=== PATIENT | male | born 1960 | race Caucasian/White ===

== ENCOUNTER → 2020-07-27 13:20 | Outpatient (BNVA) | payer OTHER, SELFPAY | PROVIDERS: Visit Provider Internal Medicine | DX: E78.5 Hyperlipidemia, unspecified (principal); R01.1 Cardiac murmur, unspecified | CPT/HCPCS: 80061 ==

== ENCOUNTER 2020-09-09 14:52 | Outpatient (CLI) | payer OTHER, SELFPAY ==
--- NOTE | 2020-09-09 15:00 | USCV_ITS ---
Aracely Yony Age: 60 Gender: M : 1960 Exam Date: 09/09/2020 15:11 Ordering Phys: Ezekiel Luz M.D ([email or web address]) Technologist: Carley Peña Exam Location: [facility] [place] Indication: Cardiac murmur BP: 130 / 82 HR: 69 Rhythm: Sinus Technical Quality: Fair MEASUREMENTS (Male / Female) Normal Values 2D ECHO LV Diastolic Diameter PLAX 3.8 cm 4.2 - 5.9 / 3.9 - 5.3 cm LV Systolic Diameter PLAX 2.2 cm LV Chamber Size 3.9 cm IVS Diastolic Thickness 1.7 cm 0.6 - 1.0 / 0.6 - 0.9 cm IVS Systolic Thickness 2.0 cm LVPW Diastolic Thickness 0.7 cm 0.6 - 1.0 / 0.6 - 0.9 cm LVPW Systolic Thickness 1.4 cm RV Chamber Size 2.5 cm LVOT Diameter 1.9 cm LV Ejection Fraction 2D Teich 73.1 % LV Ejection Fraction MOD 2C 68.0 % LV Ejection Fraction 2C AL 68.7 % LA Diameter 2.2 cm LA Width 2.9 cm LA Height 4.5 cm RA Width 2.1 cm RA Height 4.0 cm Aorta at Sinotubular Diameter 2.5 cm M-MODE LV Diastolic Diameter MM 4.7 cm 4.2 - 5.9 / 3.9 - 5.3 cm LV Systolic Diameter MM 2.7 cm LV Ejection Fraction MM Teich 74.1 % IVS Diastolic Thickness MM 1.4 cm 0.6 - 1.0 / 0.6 - 0.9 cm IVS Systolic Thickness MM 1.9 cm LVPW Diastolic Thickness MM 1.3 cm 0.6 - 1.0 / 0.6 - 0.9 cm LVPW Systolic Thickness MM 1.4 cm RV Diastolic Diameter MM 1.6 cm Aortic Annulus Diameter 3.4 cm LA Ao Ratio MM 0.8 DOPPLER AV Peak Velocity 201.3 cm/s LVOT Peak Velocity 135.0 cm/s AV Area Cont Eq vti 1.9 cm squared AV Area Cont Eq pk 1.9 cm squared MV Area PHT 3.1 cm squared Mitral E to A Ratio 1.1 MV E' Velocity 51.0 cm/s Mitral E to MV E' Ratio 7.2 Mitral E to LV E' Lateral Ratio 5.8 Mitral E to LV E' Septal Ratio 9.7 TV Peak E Velocity 68.0 cm/s Right Atrial Pressure 3.0 mmHg PV Peak Velocity 105.0 cm/s RV Acceleration Time 0.1 s RV Ejection Time 0.3 s RV AcT/ET 0.4 FINDINGS Left Ventricle Normal left ventricular size. LV systolic function is normal with EF of 55-60%. No regional wall motion abnormalities. Normal diastolic filling pattern. Right Ventricle The right ventricle is normal in size and function. Right Atrium The right atrium is normal in size. Left Atrium The left atrium is normal in size. Mitral Valve Structurally normal mitral valve without significant stenosis or prolapse. There is trace mitral regurgitation. Aortic Valve Calcified aortic valve. Mild aortic regurgitation is seen with mean gradient across the aortic valve of 10mmHg . There is no aortic regurgitation. Tricuspid Valve Structurally normal tricuspid valve without significant stenosis or regurgitation. Insufficient TR jet to calculate RVSP Pulmonic Valve Structurally normal pulmonic valve without significant stenosis. There is no pulmonic regurgitation. Pericardium Normal pericardium without effusion. Aorta Normal ascending aorta dimension. CONCLUSIONS LV systolic function is normal with EF of 55-60% Diastolic function is normal Trace mitral regurgitation is noted Mild aortic stenosis No comparison studies are available Ezekiel Luz MD (Electronically Signed) Final Date: 13 September 2020 18:47 S
== END 2020-09-09 14:53 | disposition home or self-care (01) ==
LOC: RAD 14:54
PROVIDERS: Visit Provider Internal Medicine
DX: R01.1 Cardiac murmur, unspecified (principal); I35.0 Nonrheumatic aortic (valve) stenosis; I34.0 Nonrheumatic mitral (valve) insufficiency
CPT/HCPCS: 93306

== ENCOUNTER 2021-09-29 06:20 | Outpatient (CLI) | payer OTHER, SELFPAY ==
--- NOTE | 2021-09-29 06:30 | USCV_ITS ---
Yony Jessica Age: 61 Gender: M : 1960 Exam Date: 09/29/2021 06:32 Ordering Phys: Ezekiel Luz M.D ([email or web address]) Technologist: Lenin Aranda Exam Location: [facility] [place] Indication: aortic stenosis BP: 125 / 81 HR: 69 Rhythm: Sinus Technical Quality: Good MEASUREMENTS (Male / Female) Normal Values 2D ECHO LV Diastolic Diameter PLAX 3.9 cm 4.2 - 5.9 / 3.9 - 5.3 cm LV Systolic Diameter PLAX 1.6 cm IVS Diastolic Thickness 1.3 cm 0.6 - 1.0 / 0.6 - 0.9 cm IVS Systolic Thickness 1.3 cm LVPW Diastolic Thickness 1.1 cm 0.6 - 1.0 / 0.6 - 0.9 cm LVPW Systolic Thickness 1.5 cm LVOT Diameter 2.1 cm LV Ejection Fraction 2D Teich 88.5 % LV Ejection Fraction MOD 2C 81.7 % LV Ejection Fraction 2C AL 81.5 % LA Diameter 3.8 cm Aorta at Sinotubular Diameter 2.9 cm IVC Diameter 1.2 cm M-MODE Aortic Annulus Diameter 3.8 cm LA Ao Ratio MM 1.1 MV E Point Septal Separation 0.8 cm DOPPLER AV Peak Velocity 313.0 cm/s LVOT Peak Velocity 118.0 cm/s AV Area Cont Eq vti 1.1 cm squared AV Area Cont Eq pk 1.3 cm squared MV Area PHT 5.0 cm squared Mitral E to A Ratio 1.0 MV E' Velocity 50.0 cm/s Mitral E to MV E' Ratio 8.7 Mitral E to LV E' Lateral Ratio 9.0 Mitral E to LV E' Septal Ratio 8.5 TR Peak Velocity 223.3 cm/s TR Peak Gradient 20.0 mmHg TV Peak E Velocity 128.0 cm/s Right Atrial Pressure 5.0 mmHg Pulmonary Artery Systolic Pressu 25.0 mmHg PV Peak Velocity 126.0 cm/s FINDINGS Left Ventricle Normal left ventricular size. LV systolic function is normal with EF of 60-65%. No regional wall motion abnormalities. Normal diastolic filling pattern. Right Ventricle The right ventricle is normal in size and function. Right Atrium The right atrium is normal in size. Left Atrium The left atrium is normal in size. Mitral Valve Structurally normal mitral valve without significant stenosis or prolapse. There is trace mitral regurgitation. Aortic Valve Aortic valve is significantly thickened and calcified. By continuity equation, aortic valve area is 1.1 cm squared and mean gradient across aortic valve is 19 mmHg. This is consistent with moderate aortic stenosis. Tricuspid Valve Trace tricuspid regurgitation. Pulmonary artery systolic pressure is normal Pulmonic Valve Not well-visualized Pericardium Normal pericardium without effusion. Aorta Normal ascending aorta dimension. IVC CONCLUSIONS LV systolic function is normal with EF of 60 to 65%. Normal diastolic function. Trace mitral regurgitation. Aortic valve is significantly thickened and calcified. Moderate aortic stenosis. Aortic valve area is 1.1 cm. Mean gradient across aortic valve is 19 mmHg. Trace tricuspid regurgitation. Compared to prior echocardiogram from 2020, aortic stenosis has progressed and patient now has moderate aortic stenosis Ezekiel Luz MD (Electronically Signed) Final Date: 05 October 2021 14:10 S
== END 2021-09-29 06:21 | disposition home or self-care (01) ==
PROVIDERS: PCP Family Medicine; Visit Provider Internal Medicine
DX: I08.3 Combined rheumatic disorders of mitral, aortic and tricuspid valves (principal)
CPT/HCPCS: 93306

== ENCOUNTER 2021-10-24 13:17 | Emergency (ER) | payer OTHER, SELFPAY ==
[2021-10-24 13:22] VITALS: BP 154/83; PULSE 76; RESP 18; TEMP 36.9; O2SAT 98; BMI 25.7
--- NOTE | 2021-10-24 13:23 | ECG_ITS ---
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 Measurements Intervals [place] Rate: 73 P: 58 HI: 176 QRS: 11 QRSD: 91 T: 80 QT: 357 QTc: 395 Interpretive Statements SINUS RHYTHM NONSPECIFIC T-WAVE ABNORMALITY Compared to ECG 10/27/2014 16:12:47 No significant changes Electronically Signed On 10-24-2021 17:36:24 CDT by Ezekiel Luz M.D. [id number]
--- NOTE | 2021-10-24 13:29 | XRR_ITS ---
PROCEDURE INFORMATION: Exam: XR Chest Exam date and time: 10/24/2021 2:00 PM Age: 61 years old Clinical indication: Pain; Angina pectoris; Additional info: Chest pain TECHNIQUE: Imaging protocol: Radiologic exam of the chest. Views: 1 view. COMPARISON: CR Chest 1 [place] [id number] 10/27/2014 5:04 PM FINDINGS: Lungs: Unremarkable. No consolidation. Pleural spaces: Unremarkable. No pleural effusion. No pneumothorax. Heart/Mediastinum: Unremarkable. No cardiomegaly. Bones/joints: Unremarkable. XR/XR chest 1V portable [id number] IMPRESSION: No acute findings.
[2021-10-24 13:54] LABS: Basophils % 0.7 %; Eosinophils % 0.6 %; Hematocrit 49.8 % (42.0-52.0); Hemoglobin 16.8 g/dL (11.7-16.6); Lymphocytes # 1.4 10^3/uL (0.8-4.8); Mean Corpuscular HGB Conc 33.7 g/dL (30.0-36.0); Mean Corpuscular Hemoglobin 30.9 pg (28.0-34.0); Mean Corpuscular Volume 91.5 fl (80-94); Mean Platelet Volume 9.1 fL (7.4-10.4); Monocytes # 0.4 10^3/uL (0.2-0.9); Monocytes % 7.1 %; Neutrophils # 3.53 10^3/uL (1.8-7.7); Neutrophils % 65.4 %; Nucleated Red Blood Cells % 0 %; Platelet Count 211 10^3/cmm (130-400); Red Blood Count 5.44 10^6/uL (4.1-5.3); Red Cell Distribution Width 12.3 % (12.1-15.1); White Blood Count 5.4 10^3/uL (4.0-10.0)
[2021-10-24 14:37] LABS: Alanine Aminotransferase 73 U/L (0-41); Albumin Level 4.6 g/dL (3.5-5.2); Alkaline Phosphatase 58 U/L (40-130); Aspartate Amino Transferase 47 U/L (0-40); Blood Urea Nitrogen 13 mg/dL (6-20); Calcium 9.5 mg/dL (8.5-10.5); Carbon Dioxide 26 mmol/L (22-29); Chloride 101 mmol/L (98-107); Globulin 2.5 g/dL (1.3-4.6); Glomerular Filtration Rate 98.9 mL/min (90-130); Glucose 106 mg/dL (65-115); Osmolality Calculated 291 mOsm/kg (285-295); Sodium 140 mmol/L (136-145); Total Bilirubin 0.5 mg/dL (0.15-1.2); Total Protein 7.1 g/dL (6.6-8.7)
[2021-10-24 14:38] LABS: Anion Gap 16.9 (5-19); Potassium 3.9 mmol/L (3.5-5.1)
[2021-10-24 14:39] LABS: Troponin T (5th) Once 9 ng/L (0-15)
[2021-10-24 16:39] VITALS: BP 151/95; PULSE 65; RESP 16; O2SAT 99
--- NOTE | 2021-10-24 16:44 | ED_ITS ---
HPI - Chest Pain General: Chief Complaint: Chest Pain Stated Complaint: chest pain Time Seen by Provider: 10/24/21 16:32 Source: patient Mode of arrival: ambulatory Limitations: no limitations History of Present Illness: 61-year-old male presents emergency room with complaints of just generally not feeling well weak some mild chest pain intermittently but describes it just a generalized ache. He has a known aortic stenosis which has been being monitored. Its not cause a significant problem this point he became concerned that it may be COVID causing him to be fatigued. He last had it checked a couple months ago he does have a history hypertension and is on several antihypertensives. He has not had any vomiting or diarrhea he has not had any fever sweats chills no abdominal pain.He has noticed symptoms are worse with exertion. MD complaint: chest pain Onset (ago): week(s) Timing of current episode: episodic Prior episodes: Yes Onset: during exertion Pain location: left chest Pain radiation: none Severity: mild Quality: aching Relieving factors: rest Exacerbating factors: nothing Associated symptoms: Deny abdominal pain, diaphoresis, dyspnea, fever(s), leg edema, nausea, palpitations, sense of impending doom, syncope or vomiting Treatment prior to arrival: none Review of Systems Const: Denies: fever(s), chills, fatigue, malaise or diaphoresis ENMT: Denies: throat pain, ear or mastoid pain, nasal discharge or nasal c ongestion Card: Reports: chest pain; Denies: palpitations or syncope Resp: Denies: dyspnea GI: Denies: abdominal pain, nausea or vomiting : Denies: flank pain, dysuria, urinary frequency or urinary urgency Skin/Breast: Denies: rash or pruritus PFSH ED PFSH: Medical History (Updated 10/24/21 @ 17:43 by Dominic Bassett DO) Dyslipidemia HTN (hypertension) Mild aortic stenosis Social History Smoking and tobacco status: never smoked Alcohol intake: current Alcohol intake frequency: holidays/special occasions only Marital status: Physical Exam Const: COMMON NORMALS: no acute distress GENERAL APPEARANCE: cooperative and comfortable ORIENTATION/CONSCIOUSNESS: Yes awake, Yes oriented to person, Yes oriented to place and Yes oriented to time HENMT: COMMON NORMALS: normocephalic and atraumatic HEAD & SCALP: normocephalic and atraumatic Resp: COMMON NORMALS: normal respiratory effort, No retractions, No use of accessory muscles and clear to auscultation bilaterally AUSCULTATION: clear to auscultation bilaterally Cardio: COMMON NORMALS: regular rate and regular rhythm RATE: regular rate RHYTHM: regular rhythm OTHER: Grade 4/6 systolic murmur GI: COMMON NORMALS: Soft to palpation and No hepatosplenomegaly present AUSCULTATION: Yes normoactive bowel sounds PALPATION: Yes Soft to palpation, No Tenderness to palpation present (GI), No Guarding due to palpation present (GI) and Yes No hepatosplenomegaly present : COMMON NORMALS: No no CVA tenderness BLADDER/KIDNEY EXAM: No no CVA tenderness Back/Pelvis: COMMON NORMALS: negative for no CVA tenderness Extremity: COMMON NORMALS: normal to inspection, capillary refill normal, no clubbing, cyanosis or edema, no calf tenderness and no pedal edema Neuro: SENSORIUM/ORIENTATION: Yes oriented to person, Yes oriented to place and Yes oriented to time Skin: COMMON NORMALS: no rashes or lesions noted GENERAL SKIN EXAM: no rashes or lesions noted Course Vital Signs: Vital signs: Vital Signs Temperature 98.4 F 10/24/21 13:22 Pulse Rate 62 10/24/21 17:58 Respiratory Rate 16 10/24/21 17:58 Blood Pressure 147/93 10/24/21 17:58 Pulse Oximetry 100 10/24/21 17:58 Oxygen Delivery Me thod 10/24/21 17:05 MDM - Chest Pain Medical Decision Making Labs imaging and EKG reviewed as found on the chart. Troponins negative written discharge patient home have him follow-up with cardiology. Discussed with him the usual progression of aortic stenosis he should continue to follow as per recommendations of cardiology but does generally take some time to progress. 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 Medical Records I reviewed the patient's medical records. Lab Data I reviewed the patient's lab results. : 10/24/21 13:45 10/24/21 13:45 Radiology Impressions Chest X-Ray 10/24/21 13:29 IMPRESSION: No acute findings. Laboratory Results WBC 5.4 10^3/uL (4.0-10.0) 10/24/21 13:45 RBC 5.44 10^6/uL (4.1-5.3) H 10/24/21 13:45 Hgb 16.8 g/dL (11.7-16.6) H 10/24/21 13:45 Hct 49.8 % (42.0-52.0) 10/24/21 13:45 MCV 91.5 fl (80-94) 10/24/21 13:45 MCH 30.9 pg (28.0-34.0) 10/24/21 13:45 MCHC 33.7 g/dL (30.0-36.0) 10/24/21 13:45 RDW 12.3 % (12.1-15.1) 10/24/21 13:45 Plt Count 211 10^3/cmm (130-400) 10/24/21 13:45 MPV 9.1 fL (7.4-10.4) 10/24/21 13:45 Neut % (Auto) 65.4 % 10/24/21 13:45 Lymph % (Auto) 26.0 % 10/24/21 13:45 [place] % (Auto) 7.1 % 10/24/21 13:45 Eos % (Auto) 0.6 % 10/24/21 13:45 Baso % (Auto) 0.7 % 10/24/21 13:45 Neut # (Auto) 3.53 10^3/uL (1.8-7.7) 10/24/21 13:45 Lymph # (Auto) 1.4 10^3/uL (0.8-4.8) 10/24/21 13:45 [place] # (Auto) 0.4 10^3/uL (0.2-0.9) 10/24/21 13:45 Eos # (Auto) 0.0 10^3/uL (0.0-0.8) 10/24/21 13:45 Baso # (Auto) 0.0 10^3/uL (0.0-0.1) 10/24/21 13:45 Nucleated RBC % (auto) 0 % 10/24/21 13:45 Nucleated RBCs # 0.0 /100WBC 10/24/21 13:45 Sodium 140 mmol/L (136-145) 10/24/21 13:45 Potassium 3.9 mmol/L (3.5-5.1) 10/24/21 13:45 Chloride 101 mmol/L (98-107) 10/24/21 13:45 Carbon Dioxide 26 mmol/L (22-29) 10/24/21 13:45 Anion Gap 16.9 (5-19) 10/24/21 13:45 BUN 13 mg/dL (6-20) 10/24/21 13:45 Creatinine 0.8 mg/dL (0.7-1.2) 10/24/21 13:45 GFR Calculation 98.9 mL/min (90-130) 10/24/21 13:45 Glucose 106 mg/dL (65-115) 10/24/21 13:45 Calculated Osmolality 291 mOsm/kg (285-295) 10/24/21 13:45 Calcium 9.5 mg/dL (8.5-10.5) 10/24/21 13:45 Total Bilirubin 0.5 mg/dL (0.15-1.2) 10/24/21 13:45 AST 47 U/L (0-40) H 10/24/21 13:45 ALT 73 U/L (0-41) H 10/24/21 13:45 Alkaline Phosphatase 58 U/L (40-130) 10/24/21 13:45 Troponin T Gen 5 ng/L 9 ng/L (0-15) 10/24/21 17:03 Total Protein 7.1 g/dL (6.6-8.7) 10/24/21 13:45 Albumin 4.6 g/dL (3.5-5.2) 10/24/21 13:45 Globulin 2.5 g/dL (1.3-4.6) 10/24/21 13:45 Discharge Plan Discharge Patient Disposition: Home Clinical Impression: Mild aortic stenosis, Atypical chest pain Condition: Stable Prescriptions: No Action niacin 500 mg tablet 500 mg PO DAILY magnesium oxide 500 mg capsule 500 mg PO DAILY potassium gluconate 500 mg (83 mg) tablet 500 mg PO DAILY B-complex with vitamin C Tablet 1 tab PO DAILY aspirin [Adult Low Dose Aspirin] 81 mg tablet,delayed release (DR/EC) 81 mg PO DAILY triamterene-hydrochlorothiazid 37.5-25 mg tablet 1 tab PO DAILY Qty: 90 3RF amlodipine 5 mg tablet 5 mg PO DAILY Qty: 90 3RF Discharge Orders: Discharge ED (Routine); Ordered 10/24/21 Ordered By: Dominic Bassett Referrals: Xu Lopez DO [Primary Care Provider] - Patient Instructions: Opioid Safety Activity Restrictions/Additional Instructions: Follow-up in the cardiology office for further evaluation. Coding Level of Care Code ED Manager Labor Delivery for Chg Fwd Exam Comprehensive
--- NOTE | 2021-10-24 16:46 | ECG_ITS ---
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 Measurements Intervals [place] Rate: 61 P: 44 OR: 196 QRS: -20 QRSD: 98 T: 59 QT: 404 QTc: 408 Interpretive Statements SINUS RHYTHM NONSPECIFIC T-WAVE ABNORMALITY Compared to ECG 10/24/2021 13:23:37 No significant changes Electronically Signed On 10-24-2021 17:46:47 CDT by Ezekiel Luz M.D. [id number]
[2021-10-24 17:05] VITALS: BP 152/99; PULSE 65; RESP 16; O2SAT 98
[2021-10-24 17:41] LABS: Troponin T (5th) Once 9 ng/L (0-15)
[2021-10-24 17:58] VITALS: BP 147/93; PULSE 62; RESP 16; O2SAT 100
== END 2021-10-24 17:59 | disposition home or self-care (01) ==
PROVIDERS: Emergency Provider Family Medicine; PCP Family Medicine
DX: R07.89 Other chest pain (principal); I35.0 Nonrheumatic aortic (valve) stenosis; Z79.82 Long term (current) use of aspirin; E78.5 Hyperlipidemia, unspecified; I10 Essential (primary) hypertension
CPT/HCPCS: 71045; 80053; 84484; 85025; 93005; 99285

== ENCOUNTER → 2022-06-06 12:35 | Outpatient (BNVA) | payer OTHER, SELFPAY | PROVIDERS: PCP Family Medicine; Visit Provider Clinical Nurse Specialist Adult Health | DX: I10 Essential (primary) hypertension (principal) | CPT/HCPCS: 80048 ==

== ENCOUNTER 2022-06-07 14:50 | Emergency (ER) | payer OTHER, SELFPAY ==
[2022-06-07 14:53] VITALS: BP 164/96; PULSE 63; RESP 15; TEMP 36.7; O2SAT 99; BMI 25.4
--- NOTE | 2022-06-07 15:00 | ECG_ITS ---
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 Measurements Intervals [place] Rate: 68 P: 56 PA: 180 QRS: -7 QRSD: 96 T: 81 QT: 387 QTc: 412 Interpretive Statements SINUS RHYTHM NONSPECIFIC T-WAVE ABNORMALITY Compared to ECG 10/24/2021 16:56:41 No significant changes Electronically Signed On 06-07-2022 23:54:16 CDT by Juvenal Meléndez M.D. [id number]
--- NOTE | 2022-06-07 16:05 | XRR_ITS ---
PROCEDURE INFORMATION: Exam: XR Chest Exam date and time: 06/07/2022 4:17 PM Age: 61 years old Clinical indication: Other: Palpitations TECHNIQUE: Imaging protocol: Radiologic exam of the chest. Views: 1 view. COMPARISON: CR XR chest 1V portable [id number] 10/24/2021 2:00 PM FINDINGS: Lungs: Unremarkable. No consolidation. Pleural spaces: Unremarkable. No pleural effusion. No pneumothorax. Heart/Mediastinum: Unremarkable. No cardiomegaly. Bones/joints: Unremarkable. XR/XR chest 1V portable [id number] IMPRESSION: No acute findings.
[2022-06-07 16:14] VITALS: BP 138/82; PULSE 64; TEMP 36.8; O2SAT 93
[2022-06-07 16:43] LABS: Basophils % 0.5 %; Eosinophils # 0.1 10^3/uL (0.0-0.8); Eosinophils % 0.9 %; Hematocrit 48.4 % (42.0-52.0); Hemoglobin 16.3 g/dL (11.7-16.6); Lymphocytes # 1.5 10^3/uL (0.8-4.8); Lymphocytes % 19.9 %; Mean Corpuscular HGB Conc 33.7 g/dL (30.0-36.0); Mean Corpuscular Hemoglobin 31.7 pg (28.0-34.0); Mean Corpuscular Volume 94.2 fl (80-94); Mean Platelet Volume 8.9 fL (7.4-10.4); Monocytes # 0.5 10^3/uL (0.2-0.9); Monocytes % 5.9 %; Neutrophils # 5.55 10^3/uL (1.8-7.7); Neutrophils % 72.7 %; Nucleated Red Blood Cells % 0 %; Platelet Count 206 10^3/cmm (130-400); Red Blood Count 5.14 10^6/uL (4.1-5.3); Red Cell Distribution Width 12.2 % (12.1-15.1); White Blood Count 7.6 10^3/uL (4.0-10.0)
[2022-06-07 17:31] LABS: Alanine Aminotransferase 72 U/L (0-41); Albumin Level 4.5 g/dL (3.5-5.2); Alkaline Phosphatase 55 U/L (40-130); Anion Gap 13.3 (5-19); Aspartate Amino Transferase 48 U/L (0-40); Blood Urea Nitrogen 14 mg/dL (6-20); Calcium 9.5 mg/dL (8.5-10.5); Carbon Dioxide 28 mmol/L (22-29); Chloride 102 mmol/L (98-107); Globulin 2.7 g/dL (1.3-4.6); Glomerular Filtration Rate 86.4 mL/min (90-130); Glucose 91 mg/dL (65-115); NT Pro B Type Natriuretic Pept 36 pg/mL (0-125); Osmolality Calculated 288 mOsm/kg (285-295); Potassium 4.3 mmol/L (3.5-5.1); Sodium 139 mmol/L (136-145); Total Bilirubin 0.6 mg/dL (0.15-1.2); Total Protein 7.2 g/dL (6.6-8.7)
--- NOTE | 2022-06-07 19:02 | W.ED.ARRPALP ---
HPI - Arrhythmia/Palpitations General: Chief Complaint: Arrhythmia/Palpitations Stated Complaint: palpatations Time Seen by Provider: 06/07/22 16:03 History of Present Illness: 61-year-old male patient comes in today for complaints of some palpitations in the chest. 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 Patient denies any fever or chest pain. Patient reports the sensation as fluttering. Patient does have a history of mitral valve stenosis. Patient's last echocardiogram was 1 year ago. Patient appears nontoxic. Patient appears no acute distress. Associated symptoms: Deny nausea or vomiting Review of Systems General: Reports: 10 or more systems reviewed and unremarkable except in HPI and below Const: Denies: fever(s) Card: Reports: palpitations Resp: Denies: dyspnea GI: Denies: nausea or vomiting : Denies: difficulty urinating Musc: Reports: neck pain and back pain PFS ED PFSH: Medical History Dyslipidemia HTN (hypertension) Mild aortic stenosis Social History Smoking and tobacco status: never smoked Alcohol intake: current Alcohol intake frequency: holidays/special occasions only Marital status: Physical Exam Const: COMMON NORMALS: alert HENMT: COMMON NORMALS: normocephalic HEAD & SCALP: normocephalic Neck/C-Spine: COMMON NORMALS: full ROM Chest: COMMONS NORMALS: normal inspection of the chest Resp: COMMON NORMALS: normal respiratory effort and clear to auscultation bilaterally AUSCULTATION: clear to auscultation bilaterally Cardio: COMMON NORMALS: regular rate and regular rhythm RATE: regular rate RHYTHM: regular rhythm HEART SOUNDS: Murmur heart sound present systolic GI: COMMON NORMALS: Soft to palpation PALPATION: Yes Soft to palpation Extremity: COMMON NORMALS: no pedal edema Neuro: SENSORIUM/ORIENTATION: Yes alert Skin: COMMON NORMALS: turgor normal GENERAL SKIN EXAM: turgor normal Course Vital Signs: Vital signs: Vital Signs Temperature 98.3 F 06/07/22 16:14 Pulse Rate 64 06/07/22 16:14 Respiratory Rate 15 06/07/22 14:53 Blood Pressure 138/82 06/07/22 16:14 Pulse Oximetry 93 06/07/22 16:14 Oxygen Delivery Me thod 06/07/22 14:53 MDM - Arrhythmia/Palpitations Medical Decision Making 61-year-old male patient comes in today for complaints of palpitations in the chest. On exam patient appears nontoxic. Patient appears in no acute distress. Heart rate is regular. EKG showed no changes from prior exam. Patient does have a systolic murmur that I would define as grade 3. No edema is noted. Vital signs are normal. Differential diagnosis includes not limited to CHF, valvular heart disease, CAD, ACS, anxiety. Laboratory values were unremarkable. BNP and chest x-ray noted no signs of CHF. EKG showed no abnormalities or changes from prior exams. Reviewed exam with patient with recommendations for follow-up for echocardiogram. Patient stated that he might want to be referred to a physician but Dr. Urias had recommended in [place]. I went ahead and requested case management to assist with referral to ensure follow-up. Patient reported understanding of care plan and need for follow-up. Lab Data 06/07/22 16:34 06/07/22 16:34 Radiology Impressions Chest X-Ray 06/07/22 16:05 IMPRESSION: No acute findings. Laboratory Results WBC 7.6 10^3/uL (4.0-10.0) 06/07/22 16:34 RBC 5.14 10^6/uL (4.1-5.3) 06/07/22 16:34 Hgb 16.3 g/dL (11.7-16.6) 06/07/22 16:34 Hct 48.4 % (42.0-52.0) 06/07/22 16:34 MCV 94.2 fl (80-94) H 06/07/22 16:34 MCH 31.7 pg (28.0-34.0) 06/07/22 16:34 MCHC 33.7 g/dL (30.0-36.0) 06/07/22 16:34 RDW 12.2 % (12.1-15.1) 06/07/22 16:34 Plt Count 206 10^3/cmm (130-400) 06/07/22 16:34 MPV 8.9 fL (7.4-10.4) 06/07/22 16:34 Neut % (Auto) 72.7 % 06/07/22 16:34 Lymph % (Auto) 19.9 % 06/07/22 16:34 [place] % (Auto) 5.9 % 06/07/22 16:34 Eos % (Auto) 0.9 % 06/07/22 16:34 Baso % (Auto) 0.5 % 06/07/22 16:34 Neut # (Auto) 5.55 10^3/uL (1.8-7.7) 06/07/22 16:34 Lymph # (Auto) 1.5 10^3/uL (0.8-4.8) 06/07/22 16:34 [place] # (Auto) 0.5 10^3/uL (0.2-0.9) 06/07/22 16:34 Eos # (Auto) 0.1 10^3/uL (0.0-0.8) 06/07/22 16:34 Baso # (Auto) 0.0 10^3/uL (0.0-0.1) 06/07/22 16:34 Nucleated RBC % (auto) 0 % 06/07/22 16:34 Nucleated RBCs # 0.0 /100WBC 06/07/22 16:34 Sodium 139 mmol/L (136-145) 06/07/22 16:34 Potassium 4.3 mmol/L (3.5-5.1) 06/07/22 16:34 Chloride 102 mmol/L (98-107) 06/07/22 16:34 Carbon Dioxide 28 mmol/L (22-29) 06/07/22 16:34 Anion Gap 13.3 (5-19) 06/07/22 16:34 BUN 14 mg/dL (6-20) 06/07/22 16:34 Creatinine 0.9 mg/dL (0.7-1.2) 06/07/22 16:34 GFR Calculation 86.4 mL/min (90-130) L 06/07/22 16:34 Glucose 91 mg/dL (65-115) 06/07/22 16:34 Calculated Osmolality 288 mOsm/kg (285-295) 06/07/22 16:34 Calcium 9.5 mg/dL (8.5-10.5) 06/07/22 16:34 Total Bilirubin 0.6 mg/dL (0.15-1.2) 06/07/22 16:34 AST 48 U/L (0-40) H 06/07/22 16:34 ALT 72 U/L (0-41) H 06/07/22 16:34 Alkaline Phosphatase 55 U/L (40-130) 06/07/22 16:34 NT-Pro-B Natriuret Pep 36 pg/mL (0-125) 06/07/22 16:34 Total Protein 7.2 g/dL (6.6-8.7) 06/07/22 16:34 Albumin 4.5 g/dL (3.5-5.2) 06/07/22 16:34 Globulin 2.7 g/dL (1.3-4.6) 06/07/22 16:34 Discharge Plan Discharge Patient Disposition: Home Clinical Impression: Mild aortic stenosis, HTN (hypertension) Condition: Stable Prescriptions: No Action niacin 500 mg tablet 500 mg PO DAILY magnesium oxide 500 mg capsule 500 mg PO DAILY potassium gluconate 500 mg (83 mg) tablet 500 mg PO DAILY B-complex with vitamin C Tablet 1 tab PO DAILY aspirin [Adult Low Dose Aspirin] 81 mg tablet,delayed release (DR/EC) 81 mg PO DAILY losartan 50 mg tablet 50 mg PO DAILY Qty: 90 0RF amlodipine 5 mg tablet 5 mg PO DAILY Qty: 90 3RF Discharge Orders: Discharge ED (Routine); Ordered 06/07/22 Ordered By: Benjy Arce Referrals: Xu Lopez DO [Primary Care Provider] - Discharge Diet: Usual diet Discharge Activity: Increase activity as tolerated Patient Instructions: Mitral Stenosis (ED) Activity Restrictions/Additional Instructions: Follow-up with primary care or psychotherapist for repeat echocardiogram. No signs were noted at this time of heart failure or cardiac stress. I would recommend follow-up though so you can have further evaluation of the valve and any further deterioration. Follow-up with primary care as needed. Return to the ER for severe chest pain, increased shortness of breath, or new concerns. Coding Level of Care Code ED Pharmaceutical Analyst for Jesus Friedman
[2022-06-07 19:37] VITALS: BP 142/91; PULSE 58; RESP 18; O2SAT 95
--- NOTE | 2022-06-08 11:45 | DCPLANNER ---
Addendum entered by Harriet Rowland 07/18/22 13:57: This appointment was cancelled Addendum entered by Harriet Rowland 06/09/22 07:51: Patient has a follow up appointment scheduled for Sunday, July 17, 2022 at 1:[address] Luz at [facility]. Original Note: maintenance manager had message to schedule a follow up appointment for patient with cardiology. maintenance manager sent patients information to the front office staff at [facility]. Patients information will be printed and reviewed. Clinic will call patient with appointment information.
== END 2022-06-07 19:38 | disposition home or self-care (01) ==
PROVIDERS: Family Medicine; Emergency Provider Nurse Practitioner Family; PCP Family Medicine
DX: I35.0 Nonrheumatic aortic (valve) stenosis (principal); Z79.82 Long term (current) use of aspirin; I10 Essential (primary) hypertension; E78.5 Hyperlipidemia, unspecified
CPT/HCPCS: 36415; 71045; 80053; 83880; 85025; 93005; 99285

== ENCOUNTER → 2023-01-01 12:23 | Outpatient (BNVA) | payer OTHER, SELFPAY | PROVIDERS: PCP Family Medicine; Visit Provider Family Medicine | DX: I35.0 Nonrheumatic aortic (valve) stenosis (principal); E78.5 Hyperlipidemia, unspecified; I10 Essential (primary) hypertension; Z13.6 Encounter for screening for cardiovascular disorders | CPT/HCPCS: 80053; 80061; 83721 ==

== ENCOUNTER → 2024-01-17 13:06 | Outpatient (BNVA) | payer OTHER, SELFPAY | PROVIDERS: PCP Family Medicine; Visit Provider Family Medicine | DX: I10 Essential (primary) hypertension (principal); E03.9 Hypothyroidism, unspecified; E78.5 Hyperlipidemia, unspecified; I35.0 Nonrheumatic aortic (valve) stenosis | CPT/HCPCS: 80053; 80061; 84443; 85025 ==